=== PATIENT | male | born 2005 | race Caucasian/White ===

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

== ENCOUNTER 2025-04-01 19:31 | Emergency (ER) | payer MEDICAID, SELFPAY ==
[~2025-04-01] VITALS: Ht 172.7 cm; Wt 68.1 kg
--- NOTE | 2025-04-01 21:10 | DVH ---
CHEST RADIOGRAPH Indication: Shortness of Breath Technique: 1 view Comparison: None FINDINGS: Lines and Tubes: None Lungs: No focal consolidation. Pleura: No effusion or pneumothorax. Cardiomediastinal contours: Unremarkable. Other: No acute osseous abnormality. Marked dextroscoliotic thoracic curvature. IMPRESSION: 1. No acute cardiopulmonary abnormality.
--- NOTE | 2025-04-01 22:13 | ED.PDOC ---
History of Present Illness HPI Comments 19 year-old male with past medical history scoliosis presenting for evaluation of worsening mid thoracic pain after the patient states that he got adjusted today. Patient reports that he has had longstanding issues with back pain related to scoliosis. Has not had surgical intervention for the scoliosis. He gets adjusted by his chiropractor regularly. He states that he went earlier today for an adjustment, afterwards started having worsening sharp pain mostly along the midthoracic area. Pain worse with movement. Pain increases with taking in a deep breath. Was not having any shortness of breath prior to the adjustment. He is not taking any pain medications prior to coming in. No numbness, weakness, tingling of the upper or lower extremities. Chief Complaint: Shortness of Breath Time Seen by MD: 19:33 Primary Care Provider: EMILIA Allergies: Coded Allergies: NO KNOWN ALLERGIES (Unverified , 01/19/15) Information Source: Patient, Relative (Mother) Mode of Arrival: Ambulatory Severity: Moderate Timing: Hours Past Medical History Past Medical History (Other): Scoliosis Surgical History: Denies all surgeries Family History Family History: Reviewed,noncontributory to illness, Unknown Social History Smoker: Non-Smoker Alcohol: Denies ETOH Use Drugs: Denies Drug Use Constitutional: denies: chills, diaphoresis, fatigue, fever, malaise, sweats, weakness, others EENTM: denies: blurred vision, double vision, ear bleeding, ear discharge, ear drainage, ear pain, ear ringing, eye pain, eye redness, hearing loss, mouth pain, mouth swelling, nasal discharge, nose bleeding, nose congestion, nose pain, photophobia, tearing, throat pain, throat swelling, voice changes, others Respiratory: reports: shortness of breath Cardiovascular: denies: chest pain, dizzy spells, diaphoresis, Dyspnea on exertion, edema, irregular heart beat, left arm pain, lightheadedness, palpitations, PND, syncope, others Gastrointestinal: denies: abdomen distended, abdominal pain, blood streaked bowels, constipated, diarrhea, dysphagia, difficulty swallowing, hematemesis, melena, nausea, poor appetite, poor fluid intake, rectal bleeding, rectal pain, vomiting, others Genitourinary: denies: burning, dysuria, flank pain, frequency, hematuria, incontinence, penile discharge, penile sore, pain, testicle pain, testicle swelling, urgency, others Neurological: denies: dizziness, fainting, headache, left sided numbness, left sided weakness, numbness, paresthesia, pre-existing deficit, right sided nu mbness, right sided weakness, seizure, speech problems, tingling, tremors, weakness, others Musculoskeletal: reports: back pain, muscle pain Integumetry: denies: bruises, change in color, change in hair/nails, dryness, laceration, lesions, lumps, rash, wounds, others Allergic/Immunocompromised: denies: Difficulty Healing, Frequent Infections, Hives, Itching, others Hematologic/Lymphatic: denies: anemia, blood clots, easy bleeding, easy bruising, swollen glands, others Endocrine: denies: excessive hunger, excessive sweating, excessive thirst, excessive urination, flushing, intolerance to cold, intolerance to heat, unexplained weight gain, unexplained weight loss, others Physical Exam General Appearance: Normal HEENT: NOT DONE Neck: NOT DONE Respiratory: Chest Non-Tender, Lungs Clear, No Accessory Muscle Use, No Respiratory Distress, Normal Breath Sounds Cardiovascular: Normal Peripheral Pulses, Regular Rate/Rhythm Breast Exam: Deferred Gastrointestinal: NOT DONE Genitalia: Deferred Pelvic: Deferred Rectal: Deferred Extremities: None 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 Was a procedure done?: No EKG EKG : Pulse Rate (adult): 70 [place]: Normal Cardiac Rhythm: NSR Block: None Hypertrophy: None ST: Normal Differential Dx Considerations may include: Thoracic Muscle Spasm vs Rib contusion/fracture vs pneumothorax X-Ray, Labs, Meds, VS Vital Signs Date Time Temp Pulse Resp B/P (MAP) Pulse Ox O2 Delivery O2 Flow Rate FiO2 04/01/25 22:45 98.2 64 14 115/81 (92) 98 98.2 04/01/25 22:45 64 14 98 Room Air* 0 21 04/01/25 22:19 70 04/01/25 19:49 70 04/01/25 19:43 18 98 Room Air* 0 21 04/01/25 19:35 97.9 79 18 139/89 98 97.9 Current Medications Medications (Trade) Dose Ordered Sig/Tanvir Route Start Time Stop Time Status Last Admin Ketorolac Tromethamine (Toradol Injection) 30 mg ONCE ONCE IM 04/01/25 20:15 04/01/25 20:25 DC 04/01/25 22:51 Lidocaine (Lidoderm 5% Topical Patch) 1 patch ONCE ONCE TOP 04/01/25 20:15 04/01/25 20:25 DC 04/01/25 22:49 Cyclobenzaprine HCl (Flexeril Tablet) 10 mg ONCE ONCE PO 04/01/25 20:15 04/01/25 20:25 DC 04/01/25 22:50 Acetaminophen (Tylenol Tablet) 650 mg ONCE ONCE PO 04/01/25 20:15 04/01/25 20:25 DC 04/01/25 22:50 Time of 1ST Reevaluation: 22:12 (Patient reporting improvement of discomfort after interventions.) Reevaluation 1ST: Improved Time of 2ND Reevaluation: 00:20 (Patient feeling better after interventions. Requesting to be discharged at this time.) Patient Education/Counseling: Diagnosis, Treatment, Need For Follow Up Family Education/Counseling: Diagnosis, Treatment, Need For Follow Up SEPSIS Sepsis Screen Date sepsis recognized/suspect: Apr 01, 2025 Time Sepsis recognized/suspect: 1936 Recent Procedure: No On Antibiotic Therapy: No Respiratory Rate >20: No Heart Rate >90: No Temp<36 C (96.8 F) or >38.3 C: No SBP <90 or MAP <65 mmHG: No New Acute Mental Status Change: No Is the patient on CPAP, BIPAP,: No Physician Orders Chest Xray 1 View (04/01/25 20:02) Vital Signs Date Time Temp Pulse Resp B/P (MAP) Pulse Ox O2 Delivery O2 Flow Rate FiO2 04/01/25 22:45 98.2 64 14 115/81 (92) 98 98.2 04/01/25 22:45 64 14 98 Room Air* 0 21 04/01/25 22:19 70 04/01/25 19:49 70 04/01/25 19:43 18 98 Room Air* 0 21 04/01/25 19:35 97.9 79 18 139/89 98 97.9 Medications Medications Dose Ordered Sig/Tanvir Route Start Time Stop Time Status Last Admin Dose Admin Acetaminophen 650 mg ONCE ONCE PO 04/01/25 20:15 04/01/25 20:25 DC 04/01/25 22:50 Cyclobenzaprine HCl 10 mg ONCE ONCE PO 04/01/25 20:15 04/01/25 20:25 DC 04/01/25 22:50 Ketorolac Tromethamine 30 mg ONCE ONCE IM 04/01/25 20:15 04/01/25 20:25 DC 04/01/25 22:51 Lidocaine 1 patch ONCE ONCE TOP 04/01/25 20:15 04/01/25 20:25 DC 04/01/25 22:49 Departure 1 Departure Time of Disposition: 22:10 (Patient with longstanding back issues related to his underlying scoliosis. Given that the pain started after the adjustment suspect likely musculoskeletal spasm. Given the shortness of breath consider possible underlying pneumothorax or rib injury. Chest x-ray was performed which upon my review shows normal bilateral lungs and no evidence of rib fractures or pneumothorax. Patient is neuro intact along bilateral upper extremities and lower extremities. No concerns for acute cord compromise. Patient was treated here symptomatically with IM Toradol, oral Tylenol, oral Flexeril and a topical lidocaine patch. Upon reassessment patient is feeling improved. She is stable for discharge further outpatient management. Advised to take NSAIDs around the clock over the upcoming days and to apply salonpas patches as needed for discomfort.) Impression: Primary Impression: Spasm of thoracic back muscle Additional Impression: Scoliosis Disposition: HOME / SELF CARE / HOMELESS Condition: Stable Additional Instructions: Please continue to follow-up with your chiropractor for continued management, adjustments of your spine related to your scoliosis. Your symptoms today are likely related to a muscle spasm. Take Tylenol 650 mg and ibuprofen 600 mg together every 6-8 hours to help decrease pain, inflammation over the coming days. You can purchase [id number] Salonpas lidocaine patches which are similar to the numbing patch that was applied to your back. Discharged With: Self, Relative (Mother) Critical Care Note Critical Care Time?: No Stability Stability form required: SOREN Aguilar MD Apr 01, 2025 22:13
[2025-04-01 22:45] VITALS: BP 115/81; PULSE 64; RESP 14; TEMP 98.2; O2SAT 98
[2025-04-01] MEDS: LIDOCAINE 5% TOPICAL PATCH TOP ONE (22:49)
[2025-04-01] MEDS: CYCLOBENZAPRINE HCL 10 MG TAB PO ONE (22:50)
[2025-04-01] MEDS: ACETAMINOPHEN 325 MG TAB PO ONE (22:50)
[2025-04-01] MEDS: KETOROLAC TROMETH 60MG/2ML VIAL IM ONE (22:51)
--- NOTE | 2025-04-06 14:31 | ECG ---
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
== END 2025-04-02 00:32 | disposition home or self-care (01) ==
LOC: ER 19:31
DX: M62.830 Muscle spasm of back (principal); M41.9 Scoliosis, unspecified
CPT/HCPCS: 71045; 96372; 99284; J1885; 93005